=== PATIENT | female | born 1990 | race Caucasian/White ===

== ENCOUNTER 2017-06-06 12:56 | Outpatient (CLI) ==
[2013-09-08 04:26] VITALS: BMI 22.8
[2017-06-06 13:06] LABS: FLU INTERNAL QC INTERNAL QC VALID; MOLECULAR FLU A POSITIVE (NEGATIVE); MOLECULAR FLU B NEGATIVE (NEGATIVE)
== END 2017-06-06 12:57 | disposition home or self-care (01) ==
LOC: LAB 12:56
PROVIDERS: ATTEND Emergency Medicine
DX: J06.9 Acute upper respiratory infection, unspecified (principal)
CPT/HCPCS: 87651; 87804; 87880